=== PATIENT | female | born 1990 | race Two or more races ===

== ENCOUNTER 2025-05-10 00:44 | Emergency (ER) | payer OTHER ==
[~2025-05-10] VITALS: Ht 160 cm; Wt 50.8 kg
[2025-05-10] MEDS ORDERED: KETOROLAC TROMETHAMINE 10 MG TABLET PO STA (05:54)
== END 2025-05-10 05:58 | disposition home or self-care (01) ==
LOC: ER 00:44
DX: G89.11 Acute pain due to trauma (principal); M43.6 Torticollis; Z28.04 Immunization not carried out because of patient allergy to vaccine or component